=== PATIENT | male | born 1980 | race American Indian/Alaskan Native ===

== ENCOUNTER 2017-10-29 18:26 | Emergency (ER) | payer OTHER ==
[2017-10-29] MEDS ORDERED: TYLENOL ONE (18:45)
[2017-10-29] MEDS ORDERED: TYLENOL PO ONE (18:47)
--- NOTE | 2017-10-29 20:19 | XRay Report ---
FINAL REPORT PROCEDURE: XR KNEE 3V RT TECHNIQUE: Right knee, three views HISTORY: right knee pain, swelling COMPARISON: No prior studies are available for comparison. FINDINGS: No acute fracture or dislocation is seen. No focal osseous lesions. No joint effusion. IMPRESSION: No acute fracture is identified
--- NOTE | 2017-10-29 22:19 | Emergency Department Report ---
ED Lower Extremity HPI - General Chief Complaint: Extremity Injury, Lower Stated Complaint: KNEE PAIN Time Seen by Provider: 10/29/17 22:14 Source: patient Mode of arrival: Ambulatory Limitations: No Limitations - History of Present Illness Initial Comments: 37-year-old -Al[place] male comes in complaining of right knee pain. Patient reports his lip at work and a hold and has right knee pain now. Patient says he did not take any medication until he got here which they gave him Tylenol. Patient reports that the Tylenol helped but did not hold his pain relief for long period. Patient reports no past medical history currently takes no medications on a daily basis and has no known drug allergies MD Complaint: knee injury (right) -: days(s) (1), This afternoon Injury: Knee: Right Place: work - Related Data Previous Rx's Medication Instructions Recorded Last Taken Type Ibuprofen [Motrin 800 MG tab] 800 mg PO Q8HR PRN #30 tablet 10/29/17 Unknown Rx Allergies Allergy/AdvReac Type Severity Reaction Status Date / Time No Known Allergies Allergy Unverified 10/29/17 18:45 ED Review of Systems ROS: Stated complaint: KNEE PAIN Other details as noted in HPI Comment: All other systems reviewed and negative Musculoskeletal: joint swelling (right), arthralgia (right) ED Past Medical Hx - Past Medical History Previous Medical History?: No - Surgical History Past Surgical History?: No - Social History Smoking Status: Current Every Day Smoker Substance Use Type: None - Medications Home Medications: Home Medications Medication Instructions Recorded Confirmed Last Taken Type Ibuprofen [Motrin 800 MG tab] 800 mg PO Q8HR PRN #30 tablet 10/29/17 Unknown Rx ED Physical Exam - General Limitations: No Limitations - Expanded Lower Extremity Exam Right Hip exam: Present: normal inspection Upper Leg exam: Present: normal inspection Knee exam: Present: tenderness (lateral), swelling (minimal), full knee extension. Absent: abrasion, laceration, deformity, crepidus, erythema Lower Leg exam: Present: normal inspection, full ROM. Absent: tenderness, swelling Ankle exam: Present: normal inspection, full ROM Foot/Toe exam: Present: normal inspection, full ROM ED Course Vital Signs 10/29/17 18:43 Temperature 98.2 F Pulse Rate 72 Respiratory 16 Rate Blood Pressure 172/110 O2 Sat by Pulse 97 Oximetry ED Lower Extremity MDM - Radiology Data Radiology results: report reviewed, image reviewed FINAL REPORT PROCEDURE: XR KNEE 3V RT TECHNIQUE: Right knee, three views HISTORY: right knee pain, swelling COMPARISON: No prior studies are available for comparison. FINDINGS: No acute fracture or dislocation is seen. No focal osseous lesions. No joint effusion. IMPRESSION: No acute fracture is identified Transcribed By: [facility] Dictated By: AGNES TRUJILLO M.D. Electronically Authenticated By: AGNES TRUJILLO M.D. Signed Date/Time: 10/29/172012 DD/ 12 TD/TT: 10/29/172012 - Medical Decision Making Patient has been evaluated by this provider fast track. Patient had x-ray of right knee does shows no acute fracture. He also shows no joint effusion. Discussed the patient I'll give him ibuprofen for pain and discharge him on ibuprofen place him in a knee immobilizer and have him follow-up with orthopedics if pain persists or gets worse. Patient verbalized understanding. Critical care attestation.: If time is entered above; I have spent that time in minutes in the direct care of this critically ill patient, excluding procedure time. ED Disposition Clinical Impression: Sprain of right knee Qualifiers: Encounter type: initial encounter Involved ligament of knee: lateral collateral ligament Qualified Code(s): S83.421A - Sprain of lateral collateral ligament of right knee, initial encounter Disposition: - TO HOME OR SELFCARE Is pt being admited?: No Does the pt Need Aspirin: No Condition: Stable Instructions: Knee Immobilizer (ED), Knee Sprain (ED) Additional Instructions: Please take pain medication as prescribed. Follow-up with orthopedics if symptoms persist or gets worse. Prescriptions: Ibuprofen [Motrin 800 MG tab] 800 mg PO Q8HR PRN #30 tablet PRN Reason: Pain Referrals: MAYELIN PAINTER MD [Primary Care Provider] - 3-5 Days Forms: Work/School Release Form(ED)
[2017-10-29] MEDS ORDERED: MOTRIN PO ONE (22:21)
[2017-10-29 22:28] VITALS: BP 182/112
== END 2017-10-29 22:51 | disposition home or self-care (01) ==
LOC: ED 18:26
DX: S83.91XA Sprain of unspecified site of right knee, initial encounter (principal); F17.200 Nicotine dependence, unspecified, uncomplicated; X58.XXXA Exposure to other specified factors, initial encounter; Y93.89 Activity, other specified; Y92.89 Other specified places as the place of occurrence of the external cause; Y99.8 Other external cause status
CPT/HCPCS: 99283

== ENCOUNTER 2019-01-01 14:15 | Emergency (ER) | payer OTHER ==
--- NOTE | 2019-01-01 14:27 | Event Note ---
ED Screening Note ED Screening Note: pt presents with right lower back pain and right sided abd pain that began 30 min [employer] no N/V/D never had before normal BM today feels sensation of urination PMHx HTN not on medications PSHx appendectomy no allergies to meds non smoker +tobacco no drug use This initial assessment/diagnostic orders/clinical plan/treatment(s) is/are subject to change based on patients health status, clinical progression and re- assessment by fellow clinical providers in the ED. Further treatment and workup at subsequent clinical providers discretion. Patient/guardian urged not to elope from the ED as their condition may be serious if not clinically assessed and managed. Initial orders include: labs, UA, CT abd/pelvis
[2019-01-01 15:39] LABS: Basophils # (Auto) 0.1 K/mm3 (0.0-0.1); Basophils % (Auto) 0.9 % (0.0-1.8); Eosinophils # (Auto) 0.2 K/mm3 (0.0-0.4); Hematocrit 44.8 % (35.5-45.6); Hemoglobin 15.3 gm/dl (11.8-15.2); Lymphocytes # (Auto) 3.8 K/mm3 (1.2-5.4); Lymphocytes % (Auto) 37.8 % (13.4-35.0); Mean Corpuscular HGB Conc 34 % (32-34); Mean Corpuscular Volume 89 fl (84-94); Monocytes # (Auto) 0.8 K/mm3 (0.0-0.8); Monocytes % (Auto) 7.8 % (0.0-7.3); Red Blood Count 5.04 M/mm3 (3.65-5.03); Red Cell Distribution Width 14.3 % (13.2-15.2)
[2019-01-01] MEDS ORDERED: NACL 0.9% 1000 ML 1,000 ML IV ONE (15:46)
[2019-01-01] MEDS ORDERED: TORADOL IV ONE (15:47)
[2019-01-01 15:50] LABS: Platelet Count 236 K/mm3 (140-440)
[2019-01-01 15:58] LABS: Alanine Aminotransferase 19 units/L (7-56); Albumin 4.4 g/dL (3.9-5); BUN/Creatinine Ratio 10; Blood Urea Nitrogen 15 mg/dL (9-20); Calcium 8.9 mg/dL (8.4-10.2); Hemolysis Index 7
[2019-01-01 17:27] LABS: Bilirubin,Urine NEG (Negative); Blood,Urine LG (Negative); Calcium Oxalate Crystals,Urine 3+; Color,Urine Yellow (Yellow); Mucus,Urine 2+ /HPF; Urobilinogen,Urine < 2.0 mg/dL (<2.0)
[2019-01-01 17:28] LABS: WBC,Urine < 1.0 /HPF (0.0-6.0)
--- NOTE | 2019-01-01 18:07 | Cat Scan Report ---
CT abdomen pelvis wo con INDICATION / CLINICAL INFORMATION: Right flank and abdominal pain. TECHNIQUE: All CT scans at this location are performed using CT dose reduction for ALARA by means of automated e xposure control. COMPARISON: 05/20/2018. FINDINGS: ABDOMEN: There is moderate right pelvocaliectasis and ureterectasis. There is also mild to moderate r ight perinephric soft tissue stranding. I do not identify a renal calculus or mass. The liver, spleen , gallbladder, bile ducts, pancreas, adrenal glands and bowel demonstrate no significant abnormality. No adenopathy is seen. The lung bases are clear. PELVIS: The right ureter is moderately dilated to the ureterovesical junction. There is a 3.5 mm calc ulus in the intramural portion of the ureter on axial images #[id number] of series #2. The distal left ure ter, urinary bladder and prostate gland are normal. There is no evidence of appendicitis or diverticu litis. No abnormal mass or fluid collection is seen. I do not identify a hernia. No acute osseous abn ormality is seen. IMPRESSION: 3.5 mm calculus at the right ureterovesical junction is in the intramural portion of the ureter and is causing moderate hydronephrosis. Signer Name: Raymundo Plaza MD Signed: 01/01/2019 6:02 PM Workstation Name: [id number]
--- NOTE | 2019-01-01 18:38 | Emergency Department Report ---
ED Abdominal Pain HPI - General Chief Complaint: Abdominal Pain Stated Complaint: ABDOMINAL PAIN Time Seen by Provider: 01/01/19 14:24 Source: patient Mode of arrival: Ambulatory Limitations: No Limitations - History of Present Illness Initial Comments: This is a 38-year-old -[place] male who presents to the emergency room with right sided abdominal pain that started early today. He reports urinary frequency, urgency, and right flank pain. No past medical history. Past surgical history of appendectomy. He denies nausea, vomiting, diarrhea, fever, chills, or dysuria. MD Complaint: abdominal pain -: This morning Location: RLQ Radiation: R flank Migration to: no migration Severity: severe Severity scale (0 -10): 10 Quality: stabbing, sharp Consistency: constant Improves With: nothing Worsens With: movement Associated Symptoms: denies other symptoms Treatments Prior to Arrival: NSAIDs - Related Data Previous Rx's Medication Instructions Recorded Last Taken Type amLODIPine [Norvasc] 5 mg PO DAILY #30 tab 05/21/18 Unknown Rx hydroCHLOROthiazide [HCTZ] 25 mg PO QDAY #30 tablet 05/21/18 Unknown Rx Ketorolac [Toradol] 10 mg PO Q6H PRN #8 tablet 01/01/19 Unknown Rx Ondansetron [Zofran Odt] 4 mg PO Q8HR PRN #15 tab.rapdis 01/01/19 Unknown Rx Tamsulosin [Flomax] 0.4 mg PO QDAY #5 cap 01/01/19 Unknown Rx hydroCHLOROthiazide [Hctz] 12.5 mg PO QDAY #30 capsule 01/01/19 Unknown Rx oxyCODONE /ACETAMINOPHEN [Percocet 1 tab PO Q6HR PRN #12 tablet 01/01/19 Unknown Rx 5/325] Allergies Allergy/AdvReac Type Severity Reaction Status Date / Time No Known Allergies Allergy Verified 05/20/18 19:52 ED Review of Systems ROS: Stated complaint: ABDOMINAL PAIN Other details as noted in HPI Constitutional: denies: chills, fever Respiratory: denies: cough, shortness of breath, wheezing Cardiovascular: denies: chest pain, palpitations Gastrointestinal: abdominal pain. denies: nausea, diarrhea Musculoskeletal: denies: joint swelling, arthralgia Skin: denies: rash, lesions Neurological: denies: headache, weakness, paresthesias Psychiatric: denies: anxiety, depression ED Past Medical Hx - Past Medical History Previous Medical History?: No - Surgical History Past Surgical History?: Yes Hx Appendectomy: Yes - Social History Smoking Status: Current Every Day Smoker Substance Use Type: None - Medications Home Medications: Home Medications Medication Instructions Recorded Confirmed Last Taken Type amLODIPine [Norvasc] 5 mg PO DAILY #30 tab 05/21/18 Unknown Rx hydroCHLOROthiazide [HCTZ] 25 mg PO QDAY #30 tablet 05/21/18 Unknown Rx Ketorolac [Toradol] 10 mg PO Q6H PRN #8 tablet 01/01/19 Unknown Rx Ondansetron [Zofran Odt] 4 mg PO Q8HR PRN #15 tab.rapdis 01/01/19 Unknown Rx Tamsulosin [Flomax] 0.4 mg PO QDAY #5 cap 01/01/19 Unknown Rx hydroCHLOROthiazide [Hctz] 12.5 mg PO QDAY #30 capsule 01/01/19 Unknown Rx oxyCODONE /ACETAMINOPHEN [Percocet 1 tab PO Q6HR PRN #12 tablet 01/01/19 Unknown Rx 5/325] ED Physical Exam - General Limitations: No Limitations General appearance: alert, in no apparent distress, obese - Respiratory Respiratory exam: Present: normal lung sounds bilaterally. Absent: respiratory distress - Cardiovascular Cardiovascular Exam: Present: regular rate, normal rhythm. Absent: systolic murmur, diastolic murmur, rubs, gallop - GI/Abdominal GI/Abdominal exam: Present: soft, tenderness (right lower quadrant ), normal bowel sounds. Absent: distended, guarding, rebound, rigid - Back Exam Back exam: Present: CVA tenderness (R). Absent: CVA tenderness (L) - Neurological Exam Neurological exam: Present: alert, oriented X3, normal gait - Psychiatric Psychiatric exam: Present: normal affect, normal mood - Skin Skin exam: Present: warm, dry, intact, normal color. Absent: rash ED Course Vital Signs 01/01/19 14:22 Temperature 98.3 F Pulse Rate 63 Respiratory 22 Rate Blood Pressure 204/111 O2 Sat by Pulse 97 Oximetry Vital Signs 01/01/19 01/01/19 01/01/19 14:22 18:57 18:58 Temperature 98.3 F Pulse Rate 63 77 Respiratory 22 16 Rate Blood Pressure 204/111 169/113 O2 Sat by Pulse 97 99 Oximetry ED Medical Decision Making - Lab Data Result diagrams: 01/01/19 15:08 01/01/19 15:08 Lab Results 01/01/19 01/01/19 01/01/19 Range/Units 15:08 15:08 16:10 WBC 10.1 (4.5-11.0) K/mm3 RBC 5.04 H (3.65-5.03) M/mm3 Hgb 15.3 H (11.8-15.2) gm/dl Hct 44.8 (35.5-45.6) % MCV 89 (84-94) fl MCH 30 (28-32) pg MCHC 34 (32-34) % RDW 14.3 (13.2-15.2) % Plt Count 236 (140-440) K/mm3 Lymph % (Auto) 37.8 H (13.4-35.0) % Ward % (Auto) 7.8 H (0.0-7.3) % Eos % (Auto) 2.0 (0.0-4.3) % Baso % (Auto) 0.9 (0.0-1.8) % Lymph # 3.8 (1.2-5.4) K/mm3 Ward # 0.8 (0.0-0.8) K/mm3 Eos # 0.2 (0.0-0.4) K/mm3 Baso # 0.1 (0.0-0.1) K/mm3 Seg Neutrophils % 51.5 (40.0-70.0) % Seg Neutrophils # 5.2 (1.8-7.7) K/mm3 Sodium 143 (137-145) mmol/L Potassium 3.4 L (3.6-5.0) mmol/L Chloride 104.5 (98-107) mmol/L Carbon Dioxide 25 (22-30) mmol/L Anion Gap 17 mmol/L BUN 15 (9-20) mg/dL Creatinine 1.5 (0.8-1.5) mg/dL Estimated GFR > 60 ml/min BUN/Creatinine Ratio 10 % Glucose 99 (75-100) mg/dL Calcium 8.9 (8.4-10.2) mg/dL Total Bilirubin 0.20 (0.1-1.2) mg/dL AST 20 (5-40) units/L ALT 19 (7-56) units/L Alkaline Phosphatase 92 (35-129) units/L Total Protein 7.5 (6.3-8.2) g/dL Albumin 4.4 (3.9-5) g/dL Albumin/Globulin Ratio 1.4 % Lipase 13 (13-60) units/L Urine Color Yellow (Yellow) Urine Turbidity Slightly-cloudy (Clear) Urine pH 5.0 (5.0-7.0) Ur Specific [place] 1.023 (1.003-1.030) Urine Protein 100 mg/dl (Negative) mg/dL Urine Glucose (UA) Neg (Negative) mg/dL Urine Ketones Neg (Negative) mg/dL Urine Blood Lg (Negative) Urine Nitrite Neg (Negative) Urine Bilirubin Neg (Negative) Urine Urobilinogen < 2.0 (<2.0) mg/dL Ur Leukocyte Esterase Neg (Negative) Urine WBC (Auto) < 1.0 (0.0-6.0) /HPF Urine RBC (Auto) 70.0 (0.0-6.0) /HPF U Epithel Cells (Auto) 1.0 (0-13.0) /HPF Calcium Oxalate Crystal 3+ Urine Mucus 2+ /HPF - Radiology Data Radiology results: report reviewed CT abdomen pelvis wo con INDICATION / CLINICAL INFORMATION: Right flank and abdominal pain. TECHNIQUE: All CT scans at this location are performed using CT dose reduction for ALARA by means of automated exposure control. COMPARISON: 05/20/2018. FINDINGS: ABDOMEN: There is moderate right pelvocaliectasis and ureterectasis. There is also mild to moderate right perinephric soft tissue stranding. I do not identify a renal calculus or mass. The liver, spleen, gallbladder, bile ducts, pancreas, adrenal glands and bowel demonstrate no significant abnormality. No adenopathy is seen. The lung bases are clear. PELVIS: The right ureter is moderately dilated to the ureterovesical junction. T here is a 3.5 mm calculus in the intramural portion of the ureter on axial images #[id number] of series #2. The distal left ureter, urinary bladder and prostate gland are normal. There is no evidence of appendicitis or diverticulitis. No abnormal mass or fluid collection is seen. I do not identify a hernia. No acute osseous abnormality is seen. IMPRESSION: 3.5 mm calculus at the right ureterovesical junction is in the intramural portion of the ureter and is causing moderate hydronephrosis. - Medical Decision Making Patient is stable and was examined by me. Blood pressure elevated on arrival. Obtained labs and CT of abdomen. There is mild hypokalemia, All other labs unremarkable. IV site obtained. Given Toradol, Klor-Con 40 mEq, and normal saline bolus. CT 3.5 mm calculus at the right ureterovesical junction is in the intramural portion of the ureter and is causing moderate hydronephrosis. Start Percocet, Flomax, Toradol, and Zofran for renal stones. Blood pressure trended down but remains elevated. Patient is asymptomatic. Given Norvasc 5 mg by laure th while in the ER. Start hydrochlorothiazide. Instructed to follow-up with her primary care doctor regarding hypertension. Discussed plan with patient and agreed to plan. Discharged home in stable condition. Follow up with PCP in 2-3 days. Critical care attestation.: If time is entered above; I have spent that time in minutes in the direct care of this critically ill patient, excluding procedure time. ED Disposition Clinical Impression: Renal colic on right side, Hydronephrosis of right kidney, Asymptomatic hypertension Disposition: DC-01 TO HOME OR SELFCARE Is pt being admited?: No Does the pt Need Aspirin: No Condition: Stable Instructions: Kidney Stones (ED), Renal Colic (ED), How to Strain Your Urine (ED), Hypertension (ED) Additional Instructions: Increase fluid intake to 2 L per day. Change diet to low-protein and a low-sodium diet to prevent reoccurrence. Strain urine to observe for passing stones. Follow-up with primary care doctor in 2-3 days. Follow-up with urology in 1-2 weeks for management of kidney stones. Prescriptions: Tamsulosin [Flomax] 0.4 mg PO QDAY #5 cap hydroCHLOROthiazide [Hctz] 12.5 mg PO QDAY #30 capsule oxyCODONE /ACETAMINOPHEN [Percocet 5/325] 1 tab PO Q6HR PRN #12 tablet PRN Reason: Pain Ketorolac [Toradol] 10 mg PO Q6H PRN #8 tablet PRN Reason: Pain Ondansetron [Zofran Odt] 4 mg PO Q8HR PRN #15 tab.rapdis PRN Reason: Nausea And Vomiting Referrals: GULSHAN REID MD [Staff Physician] - 3-5 Days [facility] [Provider Group] - 3-[address] [facility] [Provider Group] - 3-5 Days [facility] [Provider Group] - 3-5 Days Forms: Work/School Release Form(ED) Time of Disposition: 18:42
[2019-01-01] MEDS ORDERED: K-DUR PO ONE (18:47)
[2019-01-01] MEDS ORDERED: NORVASC PO ONE (18:59)
[2019-01-01 20:15] VITALS: BP 177/102
== END 2019-01-01 20:13 | disposition home or self-care (01) ==
LOC: ED 14:15
DX: N20.0 Calculus of kidney (principal); N13.2 Hydronephrosis with renal and ureteral calculous obstruction; I10 Essential (primary) hypertension; F17.200 Nicotine dependence, unspecified, uncomplicated; Z90.49 Acquired absence of other specified parts of digestive tract; Z79.899 Other long term (current) drug therapy
CPT/HCPCS: 36415; 74176; 80053; 81001; 83690; 85025; 96374; 99284; J1885; J7030